=== PATIENT | female | born 1965 | race Caucasian/White ===

== ENCOUNTER 2021-12-12 12:46 | Observation (INO) ==
[~2021-12-12 12:46] MED LIST: Vancomycin 1,750 MG/517.5 ML IV.SOLN IVPB ONE
[2021-12-12] MEDS ORDERED: *HR* Propofol 200 MG/20 ML VIAL IVP ONE (12:54)
[2021-12-12] MEDS ORDERED: *HR* Succinylcholine 200 MG/10 ML VIAL IVP ONE (12:54)
[2021-12-12] MEDS ORDERED: *HR* Rocuronium Bromide 50 MG/5 ML VIAL ONE (12:54)
[2021-12-12] MEDS ORDERED: Lidocaine HCL 4 ML Topical Solution (Laryng-O-Jet Kit Sterile Pak) TP ONE (12:54)
[2021-12-12] MEDS ORDERED: Ondansetron 4 MG/2 ML VIAL ONE (12:54)
[2021-12-12] MEDS ORDERED: Lidocaine -MPF 2% 5 ML VIAL ONE (12:54)
[2021-12-12] MEDS ORDERED: CeFAZolin Syr 2,000MG/20 ML 2,000 MG/20 ML SYRINGE IVPB ONE (13:16)
[2021-12-12] MEDS ORDERED: Ringers Solution, Lactated 1,000 ML IVC SCH ×2 (13:30→20:57)
[2021-12-12] MEDS ORDERED: Acetaminophen IV 1,000 MG/100 ML BAG IVPB ONE ×3 (13:53→18:37)
[2021-12-12] MEDS ORDERED: Albuterol 2.5 MG/3 ML NEBULIZER IH ONE ×2 (13:53→18:42)
[2021-12-12] MEDS ORDERED: Famotidine 20 MG TABLET PO ONE (14:30)
[2021-12-12] MEDS ORDERED: tiZANidine 4 MG TABLET PO ONE (14:30)
[2021-12-12] MEDS ORDERED: *HR* Remifentanil 2 MG VIAL IVP ONE (14:54)
[2021-12-12] MEDS ORDERED: Vancomycin 1,000 MG VIAL ONE (14:57)
[2021-12-12] MEDS ORDERED: Pregabalin 75 MG CAPSULE PO ONE (15:00)
[2021-12-12] MEDS ORDERED: Lidocaine -MPF 4% 5 ML AMPUL ONE (15:05)
[2021-12-12] MEDS ORDERED: *HR* FentaNYL (PF) 100 MCG/2 ML VIAL ONE (15:18)
[2021-12-12] MEDS: *HR* HYDROmorphone PF 0.5 MG/0.5 ML SYRINGE IVP PRN ×4 (18:45→19:42)
[2021-12-12] MEDS ORDERED: NON-FORMULARY MEDICATION 1 EACH EACH (Albuterol Sulfate 18 GM Hfa.Aer.Ad) IH PRN (20:57)
[2021-12-12] MEDS ORDERED: Ondansetron 4 MG/2 ML VIAL IVP PRN (20:57)
[2021-12-12] MEDS ORDERED: [UNRECOGNIZED DRUG - OTHER] PO PRN (20:57)
[2021-12-12] MEDS ORDERED: DIPHENHYDRAMINE PO PRN (20:57)
[2021-12-12] MEDS ORDERED: ACETAMINOPHEN PO PRN (20:57)
[2021-12-12] MEDS ORDERED: Naloxone 0.4 MG/ML INJ IVP PRN (20:57)
[2021-12-12] MEDS ORDERED: Acetaminophen 325 MG TABLET PO PRN (20:57)
[2021-12-12] MEDS: traZODone 50 MG TABLET PO SCH (21:28)
[2021-12-12] MEDS: *HR* OxyCODONE Immed Rel 5 MG TABLET PO PRN (21:28)
[2021-12-12] MEDS: *HR* Metformin 500 MG TABLET PO SCH (21:29)
[2021-12-12] MEDS: Budesonide/Formoterol 160/4.5 1 PUFF INH IH SCH (23:23)
[2021-12-13] MEDS ORDERED: Vancomycin 1,750 MG/517.5 ML IV.SOLN IVPB ONE (01:00)
[2021-12-13] MEDS: *HR* OxyCODONE Immed Rel 5 MG TABLET PO PRN ×4 (01:48→20:41)
[2021-12-13] MEDS: *HR* HYDROcodone/Acet 5/325 mg TABLET PO PRN ×2 (05:06→23:02)
[2021-12-13] MEDS: *HR* Glimepiride 4 MG TABLET PO SCH (08:45)
[2021-12-13] MEDS: lisinopriL 10 MG TABLET PO SCH (08:45)
[2021-12-13] MEDS: *HR* Metformin 500 MG TABLET PO SCH ×2 (08:46→20:41)
[2021-12-13] MEDS: BuPROPion SR (12 HR) 150 MG TABLET PO SCH (08:46)
[2021-12-13] MEDS: Insulin DETEMIR 100 UNIT/ML X5UNITS SUBQ SCH ×2 (09:17→18:17)
[2021-12-13] MEDS: Budesonide/Formoterol 160/4.5 1 PUFF INH IH SCH ×2 (10:44→21:29)
[2021-12-13] MEDS: Tiotropium 10 INH DOSE IH SCH (10:44)
[2021-12-13] MEDS ORDERED: Pregabalin 50 MG CAPSULE PO SCH (18:00)
[2021-12-13] MEDS: traZODone 50 MG TABLET PO SCH (20:41)
[2021-12-14] MEDS: *HR* OxyCODONE Immed Rel 5 MG TABLET PO PRN ×4 (03:13→20:33)
[2021-12-14] MEDS: *HR* HYDROcodone/Acet 5/325 mg TABLET PO PRN (05:22)
[2021-12-14] MEDS: Tiotropium 10 INH DOSE IH SCH (07:49)
[2021-12-14] MEDS: Budesonide/Formoterol 160/4.5 1 PUFF INH IH SCH ×2 (07:50→19:54)
[2021-12-14] MEDS: *HR* Metformin 500 MG TABLET PO SCH ×2 (08:54→20:33)
[2021-12-14] MEDS: lisinopriL 10 MG TABLET PO SCH (08:59)
[2021-12-14] MEDS: Insulin DETEMIR 100 UNIT/ML X5UNITS SUBQ SCH ×2 (08:59→19:40)
[2021-12-14] MEDS: *HR* Glimepiride 4 MG TABLET PO SCH ×2 (08:59→19:40)
[2021-12-14] MEDS: BuPROPion SR (12 HR) 150 MG TABLET PO SCH (08:59)
[2021-12-14] MEDS ORDERED: Dulaglutide [Trulicity] 1.5 MG/0.5 ML Pen.Injctr SUBQ SCH (09:00)
[2021-12-14] MEDS ORDERED: tiZANidine 4 MG TABLET PO PRN (09:15)
[2021-12-14] MEDS: Pregabalin 50 MG CAPSULE PO SCH (20:34)
[2021-12-14] MEDS: traZODone 50 MG TABLET PO SCH (20:34)
[2021-12-15] MEDS: *HR* OxyCODONE Immed Rel 5 MG TABLET PO PRN ×5 (02:04→20:01)
[2021-12-15] MEDS: BuPROPion SR (12 HR) 150 MG TABLET PO SCH (09:22)
[2021-12-15] MEDS: Pregabalin 50 MG CAPSULE PO SCH ×2 (09:22→20:02)
[2021-12-15] MEDS: *HR* Metformin 500 MG TABLET PO SCH ×2 (09:23→20:01)
[2021-12-15] MEDS: *HR* Glimepiride 4 MG TABLET PO SCH ×2 (09:23→17:58)
[2021-12-15] MEDS: Insulin DETEMIR 100 UNIT/ML X5UNITS SUBQ SCH ×2 (09:23→17:59)
[2021-12-15] MEDS: Budesonide/Formoterol 160/4.5 1 PUFF INH IH SCH ×2 (10:40→22:23)
[2021-12-15] MEDS: Tiotropium 10 INH DOSE IH SCH (10:40)
[2021-12-15] MEDS: traZODone 50 MG TABLET PO SCH (20:02)
[2021-12-16] MEDS: *HR* HYDROcodone/Acet 5/325 mg TABLET PO PRN (03:41)
[2021-12-16] MEDS: Budesonide/Formoterol 160/4.5 1 PUFF INH IH SCH ×2 (08:30→20:30)
[2021-12-16] MEDS: Tiotropium 10 INH DOSE IH SCH (08:30)
[2021-12-16] MEDS: *HR* Metformin 500 MG TABLET PO SCH ×2 (09:08→20:48)
[2021-12-16] MEDS: BuPROPion SR (12 HR) 150 MG TABLET PO SCH (09:08)
[2021-12-16] MEDS: *HR* OxyCODONE Immed Rel 5 MG TABLET PO PRN ×3 (09:09→20:52)
[2021-12-16] MEDS: Pregabalin 50 MG CAPSULE PO SCH ×2 (09:09→20:48)
[2021-12-16 10:32] VITALS: O2SAT 97
[2021-12-16] MEDS: Insulin DETEMIR 100 UNIT/ML X5UNITS SUBQ SCH ×2 (10:40→18:32)
[2021-12-16] MEDS: *HR* Glimepiride 4 MG TABLET PO SCH ×2 (10:40→18:27)
[2021-12-16 17:18] LABS: Influenza A PCR Negative (Negative); Influenza B PCR Negative (Negative); Resp. Syncytial Virus PCR Negative (Negative)
[2021-12-16 17:31] LABS: SARS-CoV-2 by PCR (In House) Negative (Negative)
[2021-12-16] MEDS: traZODone 50 MG TABLET PO SCH (20:48)
[2021-12-16 23:11] VITALS: BP 123/62; PULSE 97; TEMP 98.2
[2021-12-17] MEDS: *HR* OxyCODONE Immed Rel 5 MG TABLET PO PRN (02:30)
== END 2021-12-17 03:00 ==
LOC: SDCAOSI 12:46 → 4WAOSI 12:46
PROVIDERS: ADMIT Orthopaedic Surgery Orthopaedic Surgery of the Spine; ATTEND Orthopaedic Surgery Orthopaedic Surgery of the Spine